=== PATIENT | female | born 1975 | race Caucasian/White ===

== ENCOUNTER 2019-12-12 13:11 | Emergency (ER) | payer OTHER ==
[~2019-12-12] VITALS: Ht 170.2 cm; Wt 62.1 kg
[~2019-12-12 13:11] MED LIST: AMBIEN PAK10 MG PO; LAMICTAL100 MG PO; LITHIUM CARBON300 MG PO; LORAZEPAM0.5 MG PO
[2019-12-12] MEDS ORDERED: NEURONTIN600 M1 PO (13:38)
[2019-12-12] MEDS ORDERED: SEROQUEL25 MG (13:39)
[2019-12-12] MEDS ORDERED: MUPIROCIN1 G1 TOP (14:06)
== END 2019-12-12 14:16 | disposition home or self-care (01) ==
LOC: ER 13:11
DX: S90.872A Other superficial bite of left foot, initial encounter (principal); S90.32XA Contusion of left foot, initial encounter; W54.0XXA Bitten by dog, initial encounter; Y93.89 Activity, other specified; Y92.89 Other specified places as the place of occurrence of the external cause; Y99.8 Other external cause status

== ENCOUNTER 2020-09-09 08:00 | Outpatient (CLI) | payer OTHER ==
[~2020-09-09 08:00] MED LIST changes: +MUPIROCIN1 G1 TOP; +NEURONTIN600 M1 PO; +SEROQUEL25 MG
== END 2020-09-09 08:30 | disposition home or self-care (01) ==
LOC: PPH VACUNA 08:00
DX: Z23 Encounter for immunization (principal)

== ENCOUNTER 2020-09-28 08:00 | Outpatient (CLI) | payer OTHER | END 2020-09-28 08:30 | disposition home or self-care (01) | LOC: PPH VACUNA 08:00 | DX: Z23 Encounter for immunization (principal) ==

== ENCOUNTER 2022-12-06 15:30 | Outpatient (CLI) | payer OTHER | END 2022-12-06 15:37 | disposition home or self-care (01) | LOC: RAD 15:30 | DX: J20.9 Acute bronchitis, unspecified (principal) ==

== ENCOUNTER 2023-12-26 13:37 | Outpatient (CLI) | payer OTHER | END 2023-12-26 13:51 | disposition home or self-care (01) | LOC: MAMO-SONO 13:37 | DX: Z12.31 Encounter for screening mammogram for malignant neoplasm of breast (principal) ==